=== PATIENT | female | born 1985 | race Caucasian/White ===

== ENCOUNTER 2016-06-03 22:54 | Emergency (ER) | payer OTHER ==
[2016-06-03 22:50] LABS: URINE SOURCE CLEAN CATCH
[~2016-06-03 22:54] MED LIST: ALBUTEROL SULF8.5 G1 IH; AZITHROMYCIN250 MG PO; BACTRIM DS TABL1 TA2 PO; DESYREL50 MG; FLEXERIL10 MG PO; FLOMAX0.4 M1 PO; FLUOXETINE HCL20 M1 PO; HYTRIN PO; LITHIUM PO; LORATADINE PO; LORTAB 10-5001 EACH PO; MEDROL DOSEPAK4 MG PO; MOTRIN600 M1 PO; NAPROXEN PO; PHENERGAN PO; PYRIDIUM PO; SUDAFED PO; TESSALON200 MG PO; VICODIN 5/1 TAB 5/50 PO; ZYPREXA10 MG PO
[2016-06-03 22:56] LABS: URINE APPEARANCE CLEAR; URINE BILIRUBIN NEG (NEG); URINE BLOOD 1+ (NEG); URINE COLOR YELLOW; URINE GLUCOSE NEG (NEG); URINE KETONE NEG (NEG); URINE LEUKOCYTE ESTERASE NEG (NEG); URINE NITRATE NEG (NEG); URINE PH 7.5 (5-8); URINE PROTEIN NEG (NEG); URINE SPECIFIC GRAVITY 1.007 (1.003-1.035); URINE UROBILINOGEN 0.2 MG/DL (NEG)
[2016-06-03 22:59] LABS: CULTURE INDICATED? NO; URINE BACTERIA AUWI NEG (NEGATIVE); URINE SQUAMOUS EPITHELIAL CELL NONE SEEN /[HPF]; UWBCS1 AUWI 0-2 (0-5)
[2016-06-03 23:14] LABS: AMPHETAMINE POS (NEG); BARBITURATES NEG (NEG); BENZODIAZEPINES NEG (NEG); COCAINE NEG (NEG); MARIJUANA NEG (NEG); OPIATES NEG (NEG); TRICYCLIC ANTIDEPRESSANTS POS (NEG); U METHADONE NEG (NEG)
== END 2016-06-04 01:05 | disposition home or self-care (01) ==
LOC: CED 22:54
PROVIDERS: Emergency Medicine
DX: F32.9 Major depressive disorder, single episode, unspecified (principal); M54.9 Dorsalgia, unspecified; G89.29 Other chronic pain; F17.200 Nicotine dependence, unspecified, uncomplicated
CPT/HCPCS: 80307; 81003; 84703; 99283

== ENCOUNTER 2016-06-04 11:55 | Inpatient (IN) | payer OTHER ==
--- NOTE | ~2016-06-04 | HP ---
Unit #: [id number] #: [id number] Patient: ALICIA SPAULDING [id number] [place] [address] [id number] MR#: [id number] NAME: ALICIA SPAULDING. ROOM: 64 Age: 30 Sex: F Admission Date: 06/04/2016 : 1985 Attending Physician: Saeed Garcia M.D. Admitting Physician: Saeed Garcia M.D. Primary Care Physician: Kehinde Travis M.D. HISTORY AND PHYSICAL HISTORY OF PRESENT ILLNESS Alicia is a 30 year old admitted to [address] [place] [address] because of her continued drug use. She has had numerous admissions to this facility for the same. PAST MEDICAL HISTORY Long history of illicit substance abuse. PAST SURGICAL HISTORY Nothing reported. ALLERGIES No known drug allergies. SOCIAL HISTORY Smokes 1 pack per day. Denies alcohol. Admits to a long history of illicit substance abuse to include methamphetamine. FAMILY HISTORY Medically noncontributory. REVIEW OF SYSTEMS CONSTITUTIONAL: No fever or chills. HEENT: Denies any sore throat, ear pain or runny nose. CARDIOVASCULAR: Denies chest pain, irregular heart rhythm or palpitations. CHEST: Denies shortness of breath or cough. No hemoptysis. GASTROINTESTINAL: Denies nausea, vomiting, diarrhea or chronic constipation. ENDOCRINE: Denies history of increased thirst or urination. No recent significant weight loss or gain. GENITOURINARY: Denies dysuria, frequency, or hematuria. SKIN: Denies any rashes. HEMATOLOGIC: Denies history of increased bleeding or bruising. MUSCULOSKELETAL: Denies any hot, swollen joints. No generalized muscle pain. NEUROLOGIC: Denies problems with vision or speech. No frequent, severe headaches. No numbness, tingling or weakness in any extremities. Denies loss of bladder or bowel control. CURRENT MEDICATIONS No orders received at the time of this dictation. PHYSICAL EXAMINATION GENERAL: Alert, well-nourished, in no apparent distress. Unit #: [id number] #: [id number] Patient: ALICIA SPAULDING VITAL SIGNS: Blood pressure 120/70, heart rate 80, respirations 16, temperature 98.6. WEIGHT: 150. HEIGHT: 5 feet 5 inches. SKIN: Warm and dry without rash or lesion. HEENT: Normocephalic. TMs not viewed. Oral and nasal passages clear. Conjunctivae clear. PERRLA. EOMs intact. NECK: Supple without lymphadenopathy or thyromegaly. HEART: Regular rate and rhythm without murmur. LUNGS: Clear. ABDOMEN: Soft, nontender. : Not done. EXTREMITIES: No evidence of cyanosis, clubbing or edema. Moves all without focal deficit. NEUROLOGICAL: Grossly within normal limits. Cranial Nerves: II: Visual goff are intact. III, IV AND : Extraocular movements are intact. Pupils are equal, round and reactive to light. V: Facial sensation is grossly normal. VII: Facial movements and expression are normal. VIII: Auditory acuity grossly intact. IX, X: Uvula is midline. Phonation is normal. XI: Patient shrugs shoulders and turns head normally. XII: Tongue protrudes in the midline. Sensory and Motor Function: Sensory and motor sensation is grossly normal. Motor: moves all extremities well. Coordination: Gait is normal. Deep Tendon Reflexes: Intact. IMPRESSION Psychiatric admission. RECOMMENDATIONS PSYCHIATRIC: Per psychiatrist. MEDICAL: See no contraindications to participate in facility's activities. MEDICAL PROGNOSIS Good. MEDICAL CONDITION Stable. Dictated by... Mady Ghosh PJavidAGaye. for Maya Mendez/leonor TD: 06/04/2016 18:26 JOB #: [id number] Unit #: [id number] #: [id number] Patient: ALICIA SPAULDING HISTORY AND PHYSICAL X Mady Ghosh X HISTORY AND PHYSICAL
--- NOTE | ~2016-06-04 | DS ---
Unit #: [id number] #: [id number] Patient: NEO SPAULDING [id number] [facility] [address] [place] [address] [id number] MR#: [id number] NAME: NEO SPAULDING. ROOM: 64 Age: 30 Sex: F Admission Date: 06/04/2016 : 1985 Discharge Date: 06/05/2016 Attending Physician: Saeed Garcia M.D. Primary Care Physician: Kehinde Travis M.D. DISCHARGE SUMMARY REASON FOR ADMISSION The patient is a 30-year-old white female, admitted in transfer from the intensive outpatient program where she had presented in a state of intoxication. HOSPITAL COURSE The patient was admitted to the [facility] unit and placed on suicide precautions. She did appear intoxicated when evaluated by this physician on 06/04/2016 and did admit to having used methamphetamine prior to coming to the hospital. Her test was sounded to be negative and she was restarted on previously prescribed medications. This physician did however choose to discontinue Depakote which had been prescribed at [facility]. Since the patient was on a subtherapeutic dose and since her chances of becoming seem rather high given her propensity for unprotected sex. The patient was in fact afraid that she was when hospitalized, but as noted previously, her test was negative. By 06/05/2016, the patient was in much brighter spirits. She has been begun Invega Sustenna through the auspices of [facility] and does look improved with this medication. Of late, we are hope that while the patient participating in the intensive outpatient program. She can receive her maintenance injection. FINAL DIAGNOSES Bipolar disorder, most recent episode manic; methamphetamine use disorder; opioid use disorder. DISPOSITION ON DISCHARGE The patient is discharged on the following medications: Invega Sustenna 156 mg daily for mood stabilization, Risperdal 1 mg b.i.d. for mood stabilization, Claritin 10 mg daily for environmental allergies, vitamin C 500 mg once daily for nutritional supplementation. DISCHARGE INSTRUCTIONS No dietary or physical restrictions were placed upon the patient at the time of discharge. FOLLOWUP Followup will take place through the auspices of the intensive outpatient program provided by this facility. PROGNOSIS The patient's prognosis is fair. Unit #: [id number] #: [id number] Patient: NEO SPAULDING Dictated by... Saeed Garcia M.D. CB/ortiz TD: 06/06/2016 00:42 JOB #: [id number] DISCHARGE SUMMARY X Saeed Garcia MD X DISCHARGE SUMMARY
== END 2016-06-05 15:45 | disposition home or self-care (01) | DRG 885 ==
LOC: P2L 11:55
DX: F31.10 Bipolar disorder, current episode manic without psychotic features, unspecified (principal); F17.210 Nicotine dependence, cigarettes, uncomplicated; F11.90 Opioid use, unspecified, uncomplicated; F15.90 Other stimulant use, unspecified, uncomplicated
CPT/HCPCS: 80307; 84703; 90853

== ENCOUNTER 2016-08-03 13:58 | Inpatient (IN) | payer OTHER ==
--- NOTE | ~2016-08-03 | PN ---
Unit #: [id number] #: [id number] Patient: NEO SPAULDING [id number] [facility] [address] [place] [address] [id number] I MR#: [id number] NAME: NEO SPAULDING. ROOM: P121 Age: 31 Sex: F Admission Date: 08/03/2016 : 1985 Attending Physician: Saeed Garcia M.D. Admitting Physician: Saeed Garcia M.D. Primary Care Physician: Kehinde Travis M.D. PEAANDRES PROGRESS NOTES DATE 08/05/2016 DISCUSSION The patient seems significantly less disorganized and is pleasant and cooperative during today's interview. She states that she was intoxicated at the time of admission though she exhibits no further signs of withdrawal. She will receive her Invega Sustenna shot today or tomorrow and is likely ready to be discharged early thereafter. Dictated by... Saeed Garcia M.D. CB/leonor TD: 08/05/2016 15:29 JOB #: [id number] [facility] PROGRESS NOTES Page 1 of 1 X Saeed Garcia MD X PROGRESS NOTE
--- NOTE | ~2016-08-03 | PN ---
Unit #: [id number] #: [id number] Patient: NEO SPAULDING [id number] [facility] [address] [place] [address] [id number] MR#: [id number] NAME: NEO SPAULDING. ROOM: P121 Age: 31 Sex: F Admission Date: 08/03/2016 : 1985 Attending Physician: Saeed Garcia M.D. Admitting Physician: Saeed Garcia M.D. Primary Care Physician: Maya Larry PROGRESS NOTES DATE 08/06/2016 DISCUSSION Our attempts to administer an Invega Sustenna shot for the patient are lowery unsuccessful secondary to the insurance company's refusal to cover the shot at this facility. Accordingly, I will begin the patient on p.o. Invega. She is extremely decompensated today. She had required a dose of Vistaril earlier today and during attempted interview hugs this physician tightly in a somewhat inappropriate fashion and then attempts to expose her upper torso to this physician. I have spoken with the patient's dialysis social worker regarding the APS report which is underway. Dictated by... Saeed Garcia M.D. CB/leonor TD: 08/06/2016 15:28 JOB #: [id number] [facility] PROGRESS NOTES Page 1 of 1 X Saeed Garcia MD X PROGRESS NOTE
--- NOTE | ~2016-08-03 | HP ---
Unit #: [id number] #: [id number] Patient: ALICIA SPAULDING [id number] [place] [address] [id number] I MR#: [id number] NAME: ALICIA SPAULDING. ROOM: [facility] Age: 31 Sex: F Admission Date: 08/03/2016 : 1985 Attending Physician: Saeed Garcia M.D. Admitting Physician: Saeed Garcia M.D. Primary Care Physician: Kehinde Travis M.D. HISTORY AND PHYSICAL HISTORY OF PRESENT ILLNESS Alicia is a 31-year-old female admitted on 08/03/[address] [place] [address] for psychosis. She reports that has been off of her medications and is believed that she (1) methamphetamines and spice. PAST MEDICAL HISTORY None. PAST SURGICAL HISTORY None. SOCIAL HISTORY Smokes one pack of cigarettes daily. No alcohol use. Does have history of methamphetamine use. Currently single and living alone. FAMILY HISTORY Noncontributory. REVIEW OF SYSTEMS CONSTITUTIONAL: No fever or chills. HEENT: Denies any sore throat, ear pain or runny nose. CARDIOVASCULAR: Denies chest pain, irregular heart rhythm or palpitations. CHEST: Denies shortness of breath or cough. No hemoptysis. GASTROINTESTINAL: Denies nausea, vomiting, diarrhea or chronic constipation. ENDOCRINE: Denies history of increased thirst or urination. No recent significant weight loss or gain. GENITOURINARY: Denies dysuria, frequency, or hematuria. SKIN: Denies any rashes. HEMATOLOGIC: Denies history of increased bleeding or bruising. MUSCULOSKELETAL: Denies any hot, swollen joints. No generalized muscle pain. NEUROLOGIC: Denies problems with vision or speech. No frequent, severe headaches. No numbness, tingling or weakness in any extremities. Denies loss of bladder or bowel control. CURRENT MEDICATIONS None. ALLERGIES None. Unit #: [id number] #: [id number] Patient: ALICIA SPAULDING PHYSICAL EXAMINATION GENERAL: Alert, oriented, in no acute distress. SKIN: Warm and dry without rash or lesion. HEENT: Normocephalic. TMs not viewed. Oral and nasal passages clear. Conjunctivae clear. PERRLA. EOMs intact. NECK: Supple without lymphadenopathy or thyromegaly. HEART: Regular rate and rhythm without murmur. LUNGS: Clear. ABDOMEN: Soft, nontender, without masses or hepatosplenomegaly. : Not done. EXTREMITIES: No evidence of cyanosis, clubbing or edema. Moves all without focal deficit. NEUROLOGICAL: Grossly within normal limits. Cranial Nerves: II: Visual goff are intact. III, IV AND : Extraocular movements are intact. Pupils are equal, round and reactive to light. V: Facial sensation is grossly normal. VII: Facial movements and expression are normal. VIII: Auditory acuity grossly intact. IX, X: Uvula is midline. Phonation is normal. XI: Patient shrugs shoulders and turns head normally. XII: Tongue protrudes in the midline. Sensory and Motor Function: Sensory and motor sensation is grossly normal. Motor: moves all extremities well. Coordination: Gait is normal. Deep Tendon Reflexes: Intact. IMPRESSION Psychiatric admission. RECOMMENDATIONS Psychiatric, per psychiatrist. MEDICAL: I see no contraindications to participating in facility's activities. MEDICAL PROGNOSIS Good. MEDICAL CONDITION Stable. Dictated by... Jaymie Contreras TD: 08/03/2016 23:52 JOB #: [id number] Unit #: [id number] #: [id number] Patient: ALICIA SPAULDING HISTORY AND PHYSICAL Page 1 of 1 X SINDHU OLSON APRN HISTORY AND PHYSICAL
--- NOTE | ~2016-08-03 | DS ---
Unit #: [id number] #: [id number] Patient: NEO SPAULDING [id number] [place] [address] [id number] I MR#: [id number] NAME: NEO SPAULDING. ROOM: P121 Age: 31 Sex: F Admission Date: 08/03/2016 : 1985 Discharge Date: 08/08/2016 Attending Physician: Saeed Garcia M.D. Primary Care Physician: Kehinde Travis M.D. DISCHARGE SUMMARY REASON FOR ADMISSION Psychosis. DIAGNOSTIC STUDIES PERTINENT LABORATORY DATA: The patient had routine blood work done that included and CMP that was well within normal parameters. TSH slightly low at 0.17, but free T4 normal at 0.96. The patient had a CBC that was well within normal parameters. Urinalysis that was negative for any illicit substances that were tested for. Urinalysis that showed 0.2 urobilinogen and 1+ blood, but otherwise negative other than 1+ bacteria. HOSPITAL COURSE The patient was admitted for safety and stabilization for noncompliance issues with her medications. The patient been on Invega in the past and apparently had not been following up as directed. Dr. Garcia readmitted her and started her on Invega titrated up to 6 mg daily. The patient was given the Invega Sustenna injection at 156 mg on 08/07/2016. The patient took it well and responded appropriately. Over the course of the hospitalization, the patient's presentation rapidly improved. She did have boundary issues with staff and peers, but they were easily redirectable. At the time of discharge, this seemed to improve. The patient was still medication-seeking in terms of narcotics, specifically Ativan, but when redirected that she would not be prescribed it when she left here, she was acceptable of it. She denied any SI or HI. She was not having any overt delusions, hallucinations, or psychosis. The patient was felt to have made remarkable improvement. Overall, it was felt the patient was ready for discharge with followup at [facility] with a plan for her to go home to a friend and/or family if possible. DISCHARGE DIAGNOSIS Schizoaffective disorder, bipolar type. DISCHARGE FOLLOWUP CARE Through [facility] to go home with her friends. DISCHARGE MEDICATIONS Invega 6 mg daily by mouth. Limited prescription as the patient is to stop it when she follows up at [facility] given her Invega Sustenna injection as well as further Sustenna Invega injections there 156 mg every 30 days, both forms are for her psychosis and mood stabilization. CONDITION AT DISCHARGE Improved. Unit #: [id number] #: [id number] Patient: NEO SPAULDING PROGNOSIS Poor given the patient's poor compliance history. DIET Regular. ACTIVITY As tolerated. Dictated by... Maya Rondon/steven TD: 08/08/2016 10:36 JOB #: [id number] DISCHARGE SUMMARY Page 1 of 1 X Vikash Cote MD X DISCHARGE SUMMARY
--- NOTE | ~2016-08-03 | PN ---
Unit #: [id number] #: [id number] Patient: NEO SPAULDING [id number] [facility] [address] [place] [address] [id number] MR#: [id number] NAME: NEO SPAULDING. ROOM: P121 Age: 31 Sex: F Admission Date: 08/03/2016 : 1985 Attending Physician: Saeed Garcia M.D. Admitting Physician: Saeed Garcia M.D. Primary Care Physician: Kehinde Travis M.D. PEAADNRES PROGRESS NOTES DATE 08/07/2016 SUBJECTIVE UPDATE This is a 31-year-old white female who is here with ongoing issues of psychosis and schizoaffective disorder. Patient has been compliant with medications and has gotten her Sustenna injection and tolerated it well. Patient continues to be somewhat flirtatious in her presentation but much more respectful of boundaries today. She seemed much more well-groomed and focused. Good eye contact. She denies any SI or HI today. She still seemed somewhat paranoid and overly energetic but was much calmer compared to earlier reports. Staff reports patient is doing well, sleeping well and following directions without issue. MENTAL STATUS EXAMINATION General appearance, improvingly groomed white female fairly cooperative, responsive to interview process with eye contact improving and boundaries being reinforced. Speech was clear and coherent. Mood was "better" with a congruent affect. Thought process and content are improving in the organization and appropriateness. No active evidence of SI, HI. No overt evidence of hallucinations today. Patient's memory was improving. Associations were more appropriate. She is alert and oriented times four. Cognitive functioning seems to be at baseline. Insight and judgement is improving. RECOMMENDATIONS Will continue patient's admission for safety and stabilization for ongoing issues with her treatment, her psychosis. Patient seems to be showing improvement with possible disposition tomorrow given her progress if she is able to maintain it and follow directions accordingly. Will leave her on medications for now as currently ordered. Dictated by... Vikash Cote M.D. JANAK/leonor TD: 08/07/2016 18:11 Unit #: [id number] #: [id number] Patient: NEO SPAULDING JOB #: [id number] [facility] PROGRESS NOTES Page 1 of 1 X Vikash Cote MD PROGRESS NOTE
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
[2016-08-06 09:50] LABS: BASOPHIL% 0.5 % (0-2.5); DIFF IND NO; EOSINOPHIL# 0.2 X10e3 (0-0.7); EOSINOPHIL% 3.1 % (0.0-7.0); HEMATOCRIT 40.4 % (35.0-45.0); HEMOGLOBIN 13.5 gm/dL (12.0-16.0); LYMPHOCYTE# 1.7 X10e3 (1.0-3.5); LYMPHOCYTE% 27.9 % (17.0-45.0); MEAN CELL VOLUME 91.9 FL (83-96); MEAN CORPUSCULAR HEMOGLOBIN 30.6 PG (28-34); MEAN CORPUSCULAR HGB CONC 33.3 g/dL (30-36); MEAN PLATELET VOLUME 8.1 FL (6.5-11.5); MONOCYTE# 0.4 X10e3 (0-1.0); MONOCYTE% 6.8 % (3.0-12.0); NEUTROPHIL# 3.7 X10e3 (1.5-7.1); NEUTROPHIL% 61.7 % (40-75); PLATELET COUNT 191 X10e3 (140-420); RED CELL DISTRIBUTION WIDTH 12.8 % (11.0-15.5)
[2016-08-06 10:24] LABS: ALBUMIN SERUM 3.7 g/dL (3.5-5.0); BILIRUBIN,TOTAL 0.4 mg/dL (0.2-2.0); BUN/CREATININE RATIO 15.71; CALCIUM SERUM 9.3 mg/dL (8.4-10.2); CREATININE SERUM 0.7 mg/dL (0.6-1.4); GLOM FILT RATE Estimated 114.6 mL/min (>60); POTASSIUM 4.3 mmol/L (3.5-5.1); PROTEIN TOTAL SERUM 6.1 g/dL (6.0-8.3)
[2016-08-06 12:35] LABS: URINE APPEARANCE CLEAR; URINE BILIRUBIN NEG (NEG); URINE BLOOD 1+ (NEG); URINE COLOR YELLOW; URINE GLUCOSE NEG (NEG); URINE KETONE NEG (NEG); URINE LEUKOCYTE ESTERASE 2+ (NEG); URINE NITRATE NEG (NEG); URINE PH 6.5 (5-8); URINE PROTEIN NEG (NEG); URINE SPECIFIC GRAVITY 1.006 (1.003-1.035); URINE UROBILINOGEN 0.2 MG/DL (NEG)
[2016-08-06 12:38] LABS: URINE BACTERIA AUWI NEG (NEGATIVE); URINE SQUAMOUS EPITHELIAL CELL OCC /[HPF]
[2016-08-06 13:01] LABS: AMPHETAMINE NEG (NEG); BARBITURATES NEG (NEG); BENZODIAZEPINES NEG (NEG); COCAINE NEG (NEG); MARIJUANA NEG (NEG); OPIATES NEG (NEG); TRICYCLIC ANTIDEPRESSANTS NEG (NEG); U METHADONE NEG (NEG)
== END 2016-08-08 10:59 | disposition home or self-care (01) | DRG 885 ==
LOC: POF 13:58 → P1S 14:03
PROVIDERS: Specialist
DX: F25.0 Schizoaffective disorder, bipolar type (principal); F17.210 Nicotine dependence, cigarettes, uncomplicated
CPT/HCPCS: 80053; 80307; 81003; 84703; 85025; J1200; J1630; J2060

== ENCOUNTER 2016-09-03 17:36 | Emergency (ER) | payer OTHER ==
[2016-09-03 18:35] LABS: BASOPHIL% 0.5 % (0-2.5); EOSINOPHIL# 0.2 X10e3 (0-0.7); EOSINOPHIL% 2.8 % (0.0-7.0); HEMATOCRIT 35.1 % (35.0-45.0); HEMOGLOBIN 11.8 gm/dL (12.0-16.0); LYMPHOCYTE# 1.3 X10e3 (1.0-3.5); LYMPHOCYTE% 17.9 % (17.0-45.0); MEAN CELL VOLUME 92.3 FL (83-96); MEAN CORPUSCULAR HGB CONC 33.6 g/dL (30-36); MEAN PLATELET VOLUME 7.6 FL (6.5-11.5); MONOCYTE# 0.4 X10e3 (0-1.0); MONOCYTE% 5.5 % (3.0-12.0); NEUTROPHIL# 5.3 X10e3 (1.5-7.1); NEUTROPHIL% 73.3 % (40-75); PLATELET COUNT 169 X10e3 (140-420); RED CELL DISTRIBUTION WIDTH 13.2 % (11.0-15.5); WHITE BLOOD COUNT 7.2 X10e3 (4.0-10.5)
[2016-09-03 18:45] LABS: DIFF IND NO
[2016-09-03 18:50] LABS: ALBUMIN SERUM 3.6 g/dL (3.5-5.0); ALKALINE PHOSPHATASE 55 U/L (32-92); ALT (SGPT) 17 U/L (10-40); AST (SGOT) 19 U/L (10-42); BILIRUBIN, DIRECT 0.1 mg/dL (0.0-0.2); BILIRUBIN,INDIRECT 0.4 mg/dL (0.0-0.9); BILIRUBIN,TOTAL 0.5 mg/dL (0.2-2.0); BLOOD UREA NITROGEN 17 mg/dL (9-23); BUN/CREATININE RATIO 21.25; CALCIUM SERUM 8.8 mg/dL (8.4-10.2); CARBON DIOXIDE 28 mmol/L (22-31); CHLORIDE 106 mmol/L (100-111); CREATININE SERUM 0.8 mg/dL (0.6-1.4); GLOM FILT RATE Estimated 97.6 mL/min (>60); GLUCOSE FASTING 137 mg/dL (70-110); POTASSIUM 3.9 mmol/L (3.5-5.1); PROTEIN TOTAL SERUM 5.8 g/dL (6.0-8.3); SALICYLATE <4.0 mg/dL; SODIUM 140 mmol/L (135-145)
[2016-09-03 18:57] LABS: ACETAMINOPHEN <10 ug/mL; ALCOHOL BLOOD <5 mg/dL (0)
[2016-09-03 20:11] LABS: AMPHETAMINE POS (NEG); BARBITURATES NEG (NEG); BENZODIAZEPINES NEG (NEG); COCAINE NEG (NEG); MARIJUANA POS (NEG); OPIATES POS (NEG); TRICYCLIC ANTIDEPRESSANTS NEG (NEG); U METHADONE NEG (NEG)
== END 2016-09-03 21:50 | disposition home or self-care (01) ==
LOC: CED 17:36
PROVIDERS: Emergency Medicine
DX: F11.10 Opioid abuse, uncomplicated (principal); F12.10 Cannabis abuse, uncomplicated; R45.851 Suicidal ideations; F17.200 Nicotine dependence, unspecified, uncomplicated; Z79.899 Other long term (current) drug therapy
CPT/HCPCS: 36415; 80048; 80076; 80307; 82947; 84703; 85025; 99283; G0480